=== PATIENT | female | born 1985 | race Caucasian/White ===

== ENCOUNTER 2020-01-10 09:20 | Outpatient (CLI) | payer BC, SELFPAY ==
--- NOTE | 2020-01-10 11:00 | NEURO_ITS ---
PATIENT NUMBER: [id number] IMPRESSION: #Complaintsof numbness of arms and legs. # Right ulnar neuropathy across the elbow # No Carpal Tunnel. # Normal f-waves in upper extremities and lower extremities. # Normal motor and sensory nerve conduction studies otherwise. # Normal needle exam. # Clinical correlation recommended. Nerve Conduction Studies Anti Sensory Summary Table Stim Site NR Peak (ms) P-T Amp (?V) Site1 Site2 Delta-P (ms) Dist (cm) Fly (m/s) Left Median Anti Sensory (2-3nd Digit) Wrist 3.0 46.2 Wrist 2-3nd Digit 3.0 14.0 47 Wrist 2.7 81.6 Wrist 2-3nd Digit 3.0 14.0 47 Right Median Anti Sensory (2-3nd Digit) Wrist 2.7 39.2 Wrist 2-3nd Digit 2.7 14.0 52 Wrist 2.6 61.2 Wrist 2-3nd Digit 2.7 14.0 52 Left Radial Anti Sensory (Base 1st Digit) Wrist 1.8 30.6 Wrist Base 1st Digit 1.8 0.0 Right Radial Anti Sensory (Base 1st Digit) Wrist 2.3 16.9 Wrist Base 1st Digit 2.3 0.0 Left Sup Fibular Anti Sensory (Ant Lat Mall) 14 cm 3.2 15.3 14 cm Ant Lat Mall 3.2 16.0 50 Right Sup Fibular Anti Sensory (Ant Lat Mall) 14 cm 3.3 9.9 14 cm Ant Lat Mall 3.3 16.0 48 Left Sural Anti Sensory (Lat Mall) Calf 3.5 16.9 Calf Lat Mall 3.5 16.0 46 Right Sural Anti Sensory (Lat Mall) Calf 3.7 4.1 Calf Lat Mall 3.7 16.0 43 Left Ulnar Anti Sensory (5th Digit) Wrist 2.2 91.0 Wrist 5th Digit 2.2 14.0 64 Right Ulnar Anti Sensory (5th Digit) Wrist 2.1 69.7 Wrist 5th Digit 2.1 14.0 67 Motor Summary Table Stim Site NR Onset (ms) O-P Amp (mV) Site1 Site2 Delta-0 (ms) Dist (cm) Fly (m/s) Left Median Motor (Abd Poll Brev) Wrist 3.7 2.8 Elbow Wrist 3.6 25.0 69 Elbow 7.3 2.4 Right Median Motor (Abd Poll Brev) Wrist 3.0 2.1 Elbow Wrist 4.0 25.0 63 Elbow 7.0 2.0 Left Peroneal Motor (Vastus Med) Ankle 4.1 2.1 Popit Ankle 6.6 35.0 53 Popit 10.7 1.9 Right Peroneal Motor (Vastus Med) Ankle 3.6 2.1 Popit Ankle 6.6 35.0 53 Popit 10.2 1.5 Left Tibial Motor (Abd Haque Brev) Ankle 4.2 3.2 Knee Ankle 8.2 38.0 46 Knee 12.4 1.2 Right Tibial Motor (Abd Haque Brev) Ankle 4.5 3.2 Knee Ankle 6.9 38.0 55 Knee 11.4 2.7 Left Ulnar Motor (Abd Dig Minimi) Wrist 2.9 7.9 A Elbow Wrist 4.8 29.0 60 A Elbow 7.7 6.5 Right Ulnar Motor (Abd Dig Minimi) Wrist 2.8 6.5 A Elbow Wrist 4.9 27.0 55 A Elbow 7.7 5.2 B Elbow Wrist 3.6 20.0 56 B Elbow 6.4 5.0 F Wave Studies NR F-Lat (ms) L-R F-Lat (ms) Left Median (Mrkrs) (Abd Poll Brev) 25.59 0.55 Right Median (Mrkrs) (Abd Poll Brev) 25.04 0.55 Left Peroneal (Mrkrs) (EDB) 44.73 0.44 Right Peroneal (Mrkrs) (EDB) 44.29 0.44 Left Tibial (Mrkrs) (Abd Hallucis) 45.41 1.45 Right Tibial (Mrkrs) (Abd Hallucis) 43.96 1.45 Left Ulnar (Mrkrs) (Abd Dig Min) 26.25 0.39 Right Ulnar (Mrkrs) (Abd Dig Min) 25.87 0.39 EMG Side Muscle Nerve Root Ins Act Fibs Amp Dur Recrt Comment Right 1stDorInt Ulnar C8-T1 Nml Nml Nml Nml Nml Right Ext Indicis Radial (Post Int) C7-8 Nml Nml Nml Nml Nml Right Ext Digitorum Radial (Post Int) C7-8 Nml Nml Nml Nml Nml Right BrachioRad Radial C5-6 Nml Nml Nml Nml Nml Right PronatorTeres Median C6-7 Nml Nml Nml
== END 2020-01-10 09:21 | disposition home or self-care (01) ==
LOC: ANHNEURO 09:22
PROVIDERS: PCP Nurse Practitioner Adult Health; Visit Provider Family Medicine
DX: R20.2 Paresthesia of skin (principal); G56.21 Lesion of ulnar nerve, right upper limb
CPT/HCPCS: 95886; 95913

== ENCOUNTER 2022-10-02 08:35 | Outpatient (CLI) | payer BC, SELFPAY ==
--- NOTE | ~2022-10-02 | US_ITS ---
Pelvic ultrasound. Clinical History: Pelvic pain Technique: Realtime transabdominal and transvaginal scanning of the pelvis was performed. Color flow Doppler and Doppler spectral analysis were performed. Findings: The uterus is anteverted. The endometrial stripe has a thickness of 10 mm. No focal mass i s identified. The right ovary measures 1.7 x 2.4 x 1.6 cm. No significant right ovarian or adnexal mass is seen. The left ovary measures 2.8 x 2.1 x 1.6 cm. No significant left ovarian or adnexal mass is seen. There is no evidence of free fluid in the cul de sac. Impression: No significant abnormality seen. Reviewed, dictated and finalized at location . Impression: No significant abnormality seen.
== END 2022-10-02 08:36 | disposition home or self-care (01) ==
PROVIDERS: PCP Family Medicine; Visit Provider Nurse Practitioner Gerontology
DX: R10.9 Unspecified abdominal pain (principal); Z87.42 Personal history of other diseases of the female genital tract
CPT/HCPCS: 76830; 76856

== ENCOUNTER 2022-11-19 07:18 | Outpatient (CLI) | payer BC, SELFPAY ==
--- NOTE | ~2022-11-19 | CT_ITS ---
CT of the Abdomen and Pelvis: Indication: Abdominal pain Technique: 2.5 mm axial scans were obtained through the abdomen and pelvis following intravenous adm inistration of 100 cc of Omnipaque 350. Dose reduction technique was used on this scan by utilizing a utomated exposure control and iterative reconstruction technique. The dose-length product (DLP) was 6 46.12 mGy-cm. COMPARISON: 07/09/2012 Findings: Scans through the lung bases are unremarkable. The liver, spleen, pancreas, gallbladder, adrenals and kidneys are within normal limits. No evidence of aortic aneurysm. No lymphadenopathy. No bowel obstruction or bowel wall thickening. There is no evidence to suggest acute appendicitis. Images through the pelvis were performed. Urinary bladder unremarkable. Probable small right adnexal cyst noted. No ascites. Impression: Probable small right adnexal cyst. No other significant findings. Reviewed, dictated and finalized at [facility]. Impression: Probable small right adnexal cyst. No other significant findings.
== END 2022-11-19 07:19 | disposition home or self-care (01) ==
PROVIDERS: PCP Family Medicine; Visit Provider Nurse Practitioner Family
DX: R10.9 Unspecified abdominal pain (principal)
CPT/HCPCS: 74177; Q9967

== ENCOUNTER 2023-06-15 10:29 | Outpatient (CLI) | payer BC, SELFPAY ==
[2023-06-15 11:29] LABS: Influenza A QL RT-PCR Negative (Negative); Influenza B QL RT-PCR Negative (Negative); RSV RNA, RT-PCR Negative (Negative); SARS-CoV-2 RNA PCR Positive (Negative)
== END 2023-06-15 10:30 | disposition home or self-care (01) ==
LOC: ANHLAB 10:31
PROVIDERS: PCP Family Medicine; Visit Provider Physician Assistant
DX: U07.1 COVID-19 (principal); J02.9 Acute pharyngitis, unspecified
CPT/HCPCS: 87637